=== PATIENT | female | born 1930 | race Caucasian/White ===

== ENCOUNTER 2017-06-11 08:45 | Inpatient (IN) | payer MEDICARE, BC ==
[2017-06-11] VITALS (8 sets, daily range): BP systolic 98–133; BP diastolic 50–77
[~2017-06-11] VITALS: Ht 165.1 cm; Wt 81.0 kg
--- NOTE | ~2017-06-11 | CON ---
[place], [place] REPORT OF CONSULTATION NAME: ANDIE WARNER UNIT #: [id number] ROOM: 406 DOCTOR: RYAN CABRERA DPM BIRTHDATE: [birth year] DOS: 06/15/2017 SUBJECTIVE: The patient is an 86-year-old female with chief complaint of a painful lesion on the bottom of the first right toe and a rash in between the toes of both feet. PAST MEDICAL HISTORY: AFib, dementia, hypothyroidism, seasonal allergies, vitamin D deficiency. PAST SURGICAL HISTORY: History of left hip replacement. SOCIAL HISTORY: Unremarkable. FAMILY HISTORY: Her mother at age 40 of CHF. Farther in 80s of dementia and old age. ALLERGIES: No known allergies. PHYSICAL EXAMINATION: EXTREMITIES: Lower extremity examination: Pedal pulses palpable bilateral. Decreased hair growth. Hypertrophic nails bilateral. There is interdigital scaling with papules, erythema noted consistent with tinea pedis. No signs of acute drainage or abscess. There is a partial thickness ulceration from to the plantar right hallux. Upon debridement with a 10 blade including the epidermal tissue layer excisionally, there were no signs of deep sinus tract, no signs of infection noted. The ulceration measured 1.9 cm in length x 1.5 cm in width x 0.1 cm in depth. ASSESSMENT: Ulceration, plantar right hallux; tinea pedis; dermatitis bilateral interspaces. PLAN: Evaluation and management. Partial thickness excisional debridement was performed of the plantar right hallux with a 10 blade. Ordered Bactroban and a bandage daily. Also ordered Lotrisone cream to be applied to affected areas bilateral foot twice a day for 2 weeks and we will check the patient if she is still in house next week. Thank you for kind consultation. [place], [place] REPORT OF CONSULTATION NAME: ANDIE WARNER UNIT #: [id number] ROOM: 406 DOCTOR: RYAN CABRERA DPM BIRTHDATE: [birth year] RYAN CABRERA DPM CM:CONSTR:REPORT OF CONSULTATION 1217 06/15/17 1240 interface
[~2017-06-11 08:45] MED LIST: AMOXIL250 MG PO; ARICEPT10 M1 PO; ASPIR LOW81 MG PO; CLARITIN10 MG PO; COUMADIN5 M2 PO; DUONEB 3 MG/3 ML3 M1 INH; LEXAPRO20 MG PO; METOPROLOL SUCC25 M2 PO; PRESERVISION AR1 SGL PO; SYNTHROID0.1 MG PO; Synthroid,Lev100 MCG PO; TYLENOL650 M1 PO; VITAMIN D5000 I2 PO; VITAMIN D50000 I3 PO
[2017-06-11 09:27] LABS: BASO # 0.1 10*3/uL (0.0-0.1); BASO % 1.2 % (0.0-1.0); EOS # 0.4 10*3/uL (0.0-0.4); EOS % 5.7 % (1.0-4.0); HEMATOCRIT 40.1 % (37.0-47.0); HEMOGLOBIN 13.2 g/dl (12.0-16.0); LYMPH # 2.3 10*3/uL (1.3-4.4); LYMPH % 31.9 % (27.0-41.0); MEAN CELL VOLUME 90.3 fl (81.0-99.0); MEAN CORPUSCULAR HGB 29.7 pg (27.0-31.0); MEAN CORPUSCULAR HGB CONC 32.9 g/dl (33.0-37.0); MEAN PLATELET VOLUME 10.1 fl (9.6-12.3); MONO # 0.5 10*3/uL (0.1-1.0); MONO % 7.2 % (3.0-9.0); NEUT # 3.9 10*3/uL (2.3-7.9); NEUT % 53.6 % (47.0-73.0); PLATELET COUNT AUTOMATED 428 10*3/uL (130-400); RED BLOOD COUNT 4.44 10*6/uL (4.10-5.10); RED CELL DISTRI WIDTH 15.1 % (0-14.5); WHITE BLOOD COUNT 7.2 10*3/uL (4.8-10.8)
[2017-06-11 09:30] LABS: BILIRUBIN NEGATIVE (NEGATIVE); BLOOD 2+ (NEGATIVE); CLARITY CLEAR (CLEAR); COLOR YELLOW (YELLOW); GLUCOSE NEGATIVE (NEGATIVE); KETONE NEGATIVE (NEGATIVE); LEUKO ESTERASE NEGATIVE (NEGATIVE); NITRITE NEGATIVE (NEGATIVE); SPECIFIC GRAVITY 1.015 (1.005-1.030); UROBILINOGEN 0.2 E.U./dl (0.2-1.0)
[2017-06-11 09:36] LABS: ACT PARTIAL THROMBO TIME 31.4 SECONDS (20.8-31.5); INTERNATIONAL NORM RATIO 2.1 (2.0-3.5)
[2017-06-11 09:42] LABS: ALBUMIN 3.4 gm/dl (3.1-4.5); CREATININE 1.14 mg/dL (0.55-1.02); POTASSIUM 3.8 mmol/L (3.5-5.1); TOTAL PROTEIN 7.2 gm/dL (6.4-8.2)
[2017-06-11 09:42] LABS: BACTERIA 1+; RBC 21-30 rbc/hpf (0-2)
[2017-06-11] MEDS ORDERED: Coumadin3 MG PO (10:40)
[2017-06-11] MEDS ORDERED: ADVIL200 M1 PO (10:41)
[2017-06-11] MEDS ORDERED: ROBITUSSIN DM240 ML PO (10:42)
[2017-06-11] MEDS ORDERED: TYLENOL325 M2 PO (10:43)
[2017-06-11] MEDS ORDERED: DIALYVITE50000 UNIT PO (12:26)
[2017-06-11] MEDS ORDERED: Lopressor25 MG PO (12:31)
[2017-06-12] VITALS: BP 131/50
[2017-06-12 07:50] LABS: BASO # 0.1 10*3/uL (0.0-0.1); BASO % 0.7 % (0.0-1.0); EOS # 0.3 10*3/uL (0.0-0.4); EOS % 2.7 % (1.0-4.0); HEMATOCRIT 34.2 % (37.0-47.0); HEMOGLOBIN 11.3 g/dl (12.0-16.0); LYMPH # 1.7 10*3/uL (1.3-4.4); LYMPH % 14.8 % (27.0-41.0); MEAN CELL VOLUME 90.2 fl (81.0-99.0); MEAN CORPUSCULAR HGB 29.8 pg (27.0-31.0); MEAN PLATELET VOLUME 10.6 fl (9.6-12.3); MONO # 0.9 10*3/uL (0.1-1.0); MONO % 8.2 % (3.0-9.0); NEUT # 8.2 10*3/uL (2.3-7.9); NEUT % 73.3 % (47.0-73.0); PLATELET COUNT AUTOMATED 367 10*3/uL (130-400); RED BLOOD COUNT 3.79 10*6/uL (4.10-5.10); RED CELL DISTRI WIDTH 15.4 % (0-14.5); WHITE BLOOD COUNT 11.2 10*3/uL (4.8-10.8)
[2017-06-12 07:54] LABS: BUN 25 mg/dl (7-24); CHLORIDE 102 mmol/L (98-107); CHOLESTEROL 146 mg/dL (<200); CREATININE 1.03 mg/dL (0.55-1.02); HDL CHOLESTEROL 50 mg/dl (40-60); LDL CHOLESTEROL 82 mg/dL (9-159); PHOSPHOROUS 2.5 mg/dL (2.5-4.9); SGOT/AST 22 IU/L (3-35); SGPT/ALT 19 U/L (12-78); SODIUM 138 mmol/L (136-145); TOTAL PROTEIN 6.3 gm/dL (6.4-8.2); TRIGLYCERIDES 69 mg/dl (<150); VLDL CHOLESTEROL 14 mg/dL (6-40)
[2017-06-12 07:59] LABS: ALKALINE PHOSPHATASE 80 U/L (45-117); THYROID STIM HORMONE (HS) 0.453 uIU/ml (0.358-4.75)
[2017-06-12 08:00] VITALS: BP 130/51
[2017-06-12 08:11] LABS: INTERNATIONAL NORM RATIO 2.3 (2.0-3.5)
[2017-06-12 08:58] LABS: VITAMIN D, 25-HYDROXY 33.2 ng/mL (30-100)
[2017-06-12 12:00] VITALS: BP 146/47
[2017-06-12 16:00] VITALS: BP 124/72
[2017-06-12 20:00] VITALS: BP 163/58
[2017-06-13] VITALS: BP 153/57
[2017-06-13 07:49] LABS: BASO # 0.1 10*3/uL (0.0-0.1); EOS # 0.2 10*3/uL (0.0-0.4); EOS % 1.8 % (1.0-4.0); HEMOGLOBIN 11.5 g/dl (12.0-16.0); LYMPH # 1.4 10*3/uL (1.3-4.4); LYMPH % 12.1 % (27.0-41.0); MEAN CELL VOLUME 90.2 fl (81.0-99.0); MEAN CORPUSCULAR HGB 30.5 pg (27.0-31.0); MEAN CORPUSCULAR HGB CONC 33.8 g/dl (33.0-37.0); MEAN PLATELET VOLUME 10.1 fl (9.6-12.3); MONO # 1.2 10*3/uL (0.1-1.0); MONO % 10.5 % (3.0-9.0); NEUT # 8.4 10*3/uL (2.3-7.9); NEUT % 74.2 % (47.0-73.0); PLATELET COUNT AUTOMATED 321 10*3/uL (130-400); RED BLOOD COUNT 3.77 10*6/uL (4.10-5.10); RED CELL DISTRI WIDTH 15.3 % (0-14.5); WHITE BLOOD COUNT 11.4 10*3/uL (4.8-10.8)
[2017-06-13 08:00] VITALS: BP 146/67
[2017-06-13 08:04] LABS: CHLORIDE 103 mmol/L (98-107); CREATININE 0.94 mg/dL (0.55-1.02); SODIUM 137 mmol/L (136-145)
[2017-06-13 08:06] LABS: BUN 15 mg/dl (7-24)
[2017-06-13 12:00] VITALS: BP 123/52
[2017-06-13 16:17] VITALS: BP 156/71
[2017-06-13 20:08] VITALS: BP 138/45
[2017-06-14] VITALS: BP 119/44
[2017-06-14 08:00] VITALS: BP 139/68
[2017-06-14 12:00] VITALS: BP 136/70
[2017-06-14 16:00] VITALS: BP 94/53
[2017-06-14 20:00] VITALS: BP 120/62
[2017-06-15] VITALS: BP 135/54
[2017-06-15 08:00] VITALS: BP 134/50
[2017-06-15 12:00] VITALS: BP 128/43; BP 128/52
[2017-06-15] MEDS ORDERED: ASPIRIN325 M2 PO (13:03)
[2017-06-15] MEDS ORDERED: LOTRISONE 0.05%15 GM T (13:03)
== END 2017-06-15 16:52 | disposition home or self-care (01) | DRG 312 ==
LOC: ED 08:45 → EDHOLD 10:20 → 4E 10:20 → EDHOLD 10:34 → 4E 10:39
PROVIDERS: Family Medicine; Internal Medicine; Student in an Organized Health Care Education/Training Program
PROC: 0HBMXZZ Excision of Right Foot Skin, External Approach (ICD-10-PCS; principal; 2017-06-15)
DX: I95.1 Orthostatic hypotension (principal); E44.0 Moderate protein-calorie malnutrition; F03.91 Unspecified dementia, unspecified severity, with behavioral disturbance; D68.59 Other primary thrombophilia; I50.32 Chronic diastolic (congestive) heart failure; E83.41 Hypermagnesemia; L97.519 Non-pressure chronic ulcer of other part of right foot with unspecified severity; I48.2 Chronic atrial fibrillation; S09.90XA Unspecified injury of head, initial encounter; D47.3 Essential (hemorrhagic) thrombocythemia; D72.829 Elevated white blood cell count, unspecified; Z96.642 Presence of left artificial hip joint; R73.9 Hyperglycemia, unspecified; E03.9 Hypothyroidism, unspecified; J30.2 Other seasonal allergic rhinitis; Z66 Do not resuscitate; N63.0 Unspecified lump in unspecified breast; L30.8 Other specified dermatitis; Z51.5 Encounter for palliative care; W18.39XA Other fall on same level, initial encounter; R00.1 Bradycardia, unspecified; Z51.81 Encounter for therapeutic drug level monitoring; Z79.899 Other long term (current) drug therapy; Z90.10 Acquired absence of unspecified breast and nipple; Z82.49 Family history of ischemic heart disease and other diseases of the circulatory system; Z81.8 Family history of other mental and behavioral disorders; Z79.01 Long term (current) use of anticoagulants; Y93.89 Activity, other specified; Y92.89 Other specified places as the place of occurrence of the external cause; Y99.8 Other external cause status; Z68.29 Body mass index [BMI] 29.0-29.9, adult

== ENCOUNTER 2017-06-29 08:32 | Emergency (ER) | payer MEDICARE, BC ==
[~2017-06-29] VITALS: Ht 152.4 cm; Wt 54.4 kg
[~2017-06-29 08:32] MED LIST changes: +ADVIL200 M1 PO; +ASPIRIN325 M2 PO; +Coumadin3 MG PO; +DIALYVITE50000 UNIT PO; +LOTRISONE 0.05%15 GM T; +Lopressor25 MG PO; +ROBITUSSIN DM240 ML PO; +TYLENOL325 M2 PO
[2017-06-29] MEDS ORDERED: ARICEPT10 M1 PO (09:00)
[2017-06-29] MEDS ORDERED: LEXAPRO20 MG PO (09:02)
[2017-06-29 09:20] LABS: BASO # 0.1 10*3/uL (0.0-0.1); BASO % 1.8 % (0.0-1.0); EOS # 0.4 10*3/uL (0.0-0.4); EOS % 4.7 % (1.0-4.0); HEMATOCRIT 36.9 % (37.0-47.0); LYMPH # 1.7 10*3/uL (1.3-4.4); LYMPH % 23.3 % (27.0-41.0); MEAN CORPUSCULAR HGB 29.9 pg (27.0-31.0); MEAN CORPUSCULAR HGB CONC 32.5 g/dl (33.0-37.0); MONO # 0.7 10*3/uL (0.1-1.0); MONO % 8.9 % (3.0-9.0); NEUT # 4.5 10*3/uL (2.3-7.9); NEUT % 60.9 % (47.0-73.0); PLATELET COUNT AUTOMATED 468 10*3/uL (130-400); RED BLOOD COUNT 4.01 10*6/uL (4.10-5.10); RED CELL DISTRI WIDTH 15.8 % (0-14.5); WHITE BLOOD COUNT 7.4 10*3/uL (4.8-10.8)
[2017-06-29 09:21] LABS: BILIRUBIN NEGATIVE (NEGATIVE); BLOOD 2+ (NEGATIVE); CLARITY CLOUDY (CLEAR); COLOR YELLOW (YELLOW); GLUCOSE NEGATIVE (NEGATIVE); KETONE NEGATIVE (NEGATIVE); LEUKO ESTERASE 3+ (NEGATIVE); NITRITE POSITIVE (NEGATIVE); UROBILINOGEN 0.2 E.U./dl (0.2-1.0)
[2017-06-29 09:29] LABS: BACTERIA 4+; WBC TNTC wbc/hpf (0-5)
[2017-06-29 09:31] LABS: RBC 21-30 rbc/hpf (0-2)
[2017-06-29 09:36] LABS: URINE AMPHETAMINES < 1000 (1000ng/ml); URINE BARBITURATES < 200 (200ng/ml); URINE BENZODIAZEPINES < 200 (200ng/ml); URINE CANNABINOIDS (THC) < 50 (50ng/ml); URINE COCAINE < 300 (300ng/ml); URINE METHADONE < 300 (300ng/ml); URINE OPIATES < 300 (300ng/ml)
[2017-06-29 09:37] LABS: ALBUMIN 3.3 gm/dl (3.1-4.5); CREATININE 1.21 mg/dL (0.55-1.02); POTASSIUM 4.1 mmol/L (3.5-5.1); TOTAL PROTEIN 6.8 gm/dL (6.4-8.2)
[2017-06-29 09:50] LABS: URINE PHENCYCLIDINE < 25 (25ng/ml)
[2017-06-29] MEDS ORDERED: SEPTDS PO (11:14)
== END 2017-06-29 11:41 ==
LOC: ED 08:32
PROVIDERS: Emergency Medicine
DX: N39.0 Urinary tract infection, site not specified (principal); I48.91 Unspecified atrial fibrillation; I50.9 Heart failure, unspecified; R73.9 Hyperglycemia, unspecified; E83.41 Hypermagnesemia; E03.9 Hypothyroidism, unspecified; F03.90 Unspecified dementia, unspecified severity, without behavioral disturbance, psychotic disturbance, mood disturbance, and anxiety; Z79.899 Other long term (current) drug therapy

== ENCOUNTER 2017-09-01 19:36 | Inpatient (IN) | payer MEDICARE, BC ==
[~2017-09-01] VITALS: Ht 165.1 cm; Wt 73.2 kg
[~2017-09-01 19:36] MED LIST changes: +SEPTDS PO
[2017-09-01 19:45] VITALS: BP 151/52
[2017-09-01] MEDS ORDERED: ASPIRIN325 M2 PO (20:06)
[2017-09-01 20:46] LABS: BASO # 0.1 10*3/uL (0.0-0.1); BASO % 1.2 % (0.0-1.0); EOS # 0.2 10*3/uL (0.0-0.4); EOS % 3.2 % (1.0-4.0); HEMATOCRIT 36.3 % (37.0-47.0); HEMOGLOBIN 11.7 g/dl (12.0-16.0); LYMPH # 1.9 10*3/uL (1.3-4.4); LYMPH % 25.4 % (27.0-41.0); MEAN CELL VOLUME 92.4 fl (81.0-99.0); MEAN CORPUSCULAR HGB 29.8 pg (27.0-31.0); MEAN CORPUSCULAR HGB CONC 32.2 g/dl (33.0-37.0); MEAN PLATELET VOLUME 10.3 fl (9.6-12.3); MONO # 0.8 10*3/uL (0.1-1.0); MONO % 10.4 % (3.0-9.0); NEUT # 4.5 10*3/uL (2.3-7.9); NEUT % 59.5 % (47.0-73.0); PLATELET COUNT AUTOMATED 334 10*3/uL (130-400); RED BLOOD COUNT 3.93 10*6/uL (4.10-5.10); RED CELL DISTRI WIDTH 15.1 % (0-14.5); WHITE BLOOD COUNT 7.6 10*3/uL (4.8-10.8)
[2017-09-01 20:59] LABS: ALBUMIN 3.4 gm/dl (3.1-4.5); ALKALINE PHOSPHATASE 106 U/L (45-117); BUN 21 mg/dl (7-24); CHLORIDE 102 mmol/L (98-107); POTASSIUM 4.2 mmol/L (3.5-5.1); SGOT/AST 26 IU/L (3-35); SGPT/ALT 19 U/L (12-78); SODIUM 140 mmol/L (136-145); TOTAL PROTEIN 6.9 gm/dL (6.4-8.2)
[2017-09-01 21:41] LABS: BILIRUBIN NEGATIVE (NEGATIVE); BLOOD 1+ (NEGATIVE); CLARITY SL CLOUDY (CLEAR); COLOR YELLOW (YELLOW); GLUCOSE NEGATIVE (NEGATIVE); KETONE NEGATIVE (NEGATIVE); LEUKO ESTERASE 3+ (NEGATIVE); NITRITE NEGATIVE (NEGATIVE); SPECIFIC GRAVITY <= 1.005 (1.005-1.030); UROBILINOGEN 0.2 E.U./dl (0.2-1.0)
[2017-09-01 21:47] LABS: BACTERIA TRACE; MUCOUS TRACE
[2017-09-01 21:49] LABS: WBC 51-100 wbc/hpf (0-5)
[2017-09-01 22:00] VITALS: BP 161/57
[2017-09-02] VITALS: BP 138/68
[2017-09-02 06:39] LABS: BASO # 0.1 10*3/uL (0.0-0.1); BASO % 1.2 % (0.0-1.0); EOS # 0.3 10*3/uL (0.0-0.4); EOS % 4.2 % (1.0-4.0); HEMATOCRIT 33.4 % (37.0-47.0); LYMPH # 2.3 10*3/uL (1.3-4.4); LYMPH % 34.7 % (27.0-41.0); MEAN CORPUSCULAR HGB CONC 32.9 g/dl (33.0-37.0); MEAN PLATELET VOLUME 10.8 fl (9.6-12.3); MONO # 0.8 10*3/uL (0.1-1.0); NEUT # 3.1 10*3/uL (2.3-7.9); NEUT % 47.7 % (47.0-73.0); PLATELET COUNT AUTOMATED 320 10*3/uL (130-400); RED BLOOD COUNT 3.67 10*6/uL (4.10-5.10); RED CELL DISTRI WIDTH 15.1 % (0-14.5); WHITE BLOOD COUNT 6.5 10*3/uL (4.8-10.8)
[2017-09-02 07:10] LABS: ALBUMIN 3.2 gm/dl (3.1-4.5); BUN 15 mg/dl (7-24); CHLORIDE 105 mmol/L (98-107); CHOLESTEROL 151 mg/dL (<200); CREATININE 0.93 mg/dL (0.55-1.02); POTASSIUM 3.7 mmol/L (3.5-5.1); SGOT/AST 23 IU/L (3-35); SGPT/ALT 18 U/L (12-78); SODIUM 141 mmol/L (136-145); TOTAL PROTEIN 6.3 gm/dL (6.4-8.2); TRIGLYCERIDES 81 mg/dl (<150); VLDL CHOLESTEROL 16 mg/dL (6-40)
[2017-09-02 07:16] LABS: ALKALINE PHOSPHATASE 97 U/L (45-117); HDL CHOLESTEROL 47 mg/dl (40-60); LDL CHOLESTEROL 88 mg/dL (9-159)
[2017-09-02 08:00] VITALS: BP 133/54
[2017-09-02 08:00] LABS: VITAMIN D, 25-HYDROXY 34.8 ng/mL (30-100)
[2017-09-02 12:00] VITALS: BP 151/59
[2017-09-02 16:00] VITALS: BP 131/61
[2017-09-02 20:00] VITALS: BP 144/45
[2017-09-03] VITALS: BP 142/58
[2017-09-03 08:00] VITALS: BP 160/59
[2017-09-03 12:00] VITALS: BP 137/46
== END 2017-09-03 13:51 | disposition home or self-care (01) | DRG 600 ==
LOC: ED 19:36 → 5E 21:23 → EDHOLD 21:23 → 5E 21:50
PROVIDERS: Emergency Medicine Emergency Medical Services; Internal Medicine; Nurse Practitioner Family
DX: N63.20 Unspecified lump in the left breast, unspecified quadrant (principal); E44.1 Mild protein-calorie malnutrition; D68.59 Other primary thrombophilia; I48.2 Chronic atrial fibrillation; I50.32 Chronic diastolic (congestive) heart failure; N64.89 Other specified disorders of breast; G30.9 Alzheimer's disease, unspecified; F02.80 Dementia in other diseases classified elsewhere, unspecified severity, without behavioral disturbance, psychotic disturbance, mood disturbance, and anxiety; J30.2 Other seasonal allergic rhinitis; E55.9 Vitamin D deficiency, unspecified; D64.9 Anemia, unspecified; Z96.641 Presence of right artificial hip joint; R73.9 Hyperglycemia, unspecified; Z90.11 Acquired absence of right breast and nipple; Z79.82 Long term (current) use of aspirin; Z79.899 Other long term (current) drug therapy; Z85.3 Personal history of malignant neoplasm of breast; Z87.440 Personal history of urinary (tract) infections; Z81.8 Family history of other mental and behavioral disorders; Z82.49 Family history of ischemic heart disease and other diseases of the circulatory system; Z68.26 Body mass index [BMI] 26.0-26.9, adult